=== PATIENT | female | born 1940 | race Two or more races ===

== ENCOUNTER 2020-02-11 06:55 | Inpatient (IN) | payer MEDICARE, OTHER ==
[~2020-02-11] VITALS: Ht 149.9 cm; Wt 63.1 kg
[2020-02-11] MEDS ORDERED: SODIUM CHLORIDE 0.9% 1,000 ML IV ONE (07:02)
[2020-02-11] MEDS ORDERED: ASPirin 81 mg TAB PO ONE (07:15)
[2020-02-11 07:37] LABS: Basophils # (auto) 0 10 ^3/uL (0-0.2); Basophils % (auto) 0.4 % (0.0-2.0); Eosinophils # (auto) 0 10 ^3/uL (0-0.8); Eosinophils % (auto) 0.9 % (0.0-7.0); Hemoglobin 14.9 g/dL (12.2-16.2); Lymphocytes # (auto) 1.5 10 ^3/uL (0.4-5.4); Lymphocytes % (auto) 29.8 % (10.0-50.0); Mean Corpuscular Hemoglobin 32.6 pg (28.0-32.0); Monocytes # (auto) 0.3 10 ^3/uL (0-1.3); Monocytes % (auto) 5.5 % (0.0-12.0); Neutrophils # (auto) 3.3 10 ^3/uL (1.6-8.6); Neutrophils % (auto) 63.4 % (37.0-80.0); Nucleated Red Blood Cells % 0.1 %; Platelet Count (auto) 230 10^3/uL (140-450); Red Blood Cells 4.58 10^6/uL (4.0-5.20); Red Cell Distribution Width 12.8 % (11.8-14.3); White Blood Cell 5.2 10^3/uL (4.4-10.8)
[2020-02-11 07:50] LABS: Albumin 3.7 g/dL (3.4-5.0); Anion Gap 7 (5-15); Blood Urea Nitrogen 15 mg/dL (7-18); Calcium 9.4 mg/dL (8.5-10.1); Carbon Dioxide 26 mmol/L (21-32); Chloride 107 mmol/L (98-107); Glucose 127 mg/dL (74-106); Potassium 3.8 mmol/L (3.5-5.1); Sodium 140 mmol/L (136-145)
[2020-02-11 07:56] LABS: Alanine Aminotransferase 22 U/L (13-56); Alkaline Phosphatase 79 U/L (45-117); Aspartate Aminotransferase 17 U/L (15-37); BUN/Creatinine Ratio 18.3; Bilirubin, Total 0.6 mg/dL (0.2-1.0); GFR African American 87 mL/min; GFR Non-African American 72 mL/min; Total Protein 7.8 g/dL (6.4-8.2)
[2020-02-11 10:28] LABS: Urine Bacteria FEW /hpf (None Seen); Urine Blood Negative /uL (Negative); Urine Mucus FEW (None Seen); Urine Specific Gravity 1.015 (1.001-1.035); Urine WBC 4 /hpf (0 - 5)
[2020-02-11] MEDS ORDERED: cefTRIAXone 1GM/50ML D5W 50 ML IV ONE (10:45)
[2020-02-11] MEDS ORDERED: HYDROcodone-ACET 5/325MG TAB PO PRN (12:30)
[2020-02-11] MEDS ORDERED: ACETAMINOPHEN 500 MG TAB PO PRN (12:30)
[2020-02-11] MEDS ORDERED: NITROGLYCERIN 0.4 MG SL TAB SL PRN (12:30)
[2020-02-11] MEDS ORDERED: ONDANSETRON HCL 4 MG/2 ML VIAL IV PRN (12:30)
[2020-02-11] MEDS ORDERED: PANTOPRAZOLE 40 MG/10 ML VIAL INJ IV ONE (12:30)
[2020-02-11] MEDS ORDERED: MORPHINE SULF INJ 2 MG/ML SYRINGE 1ML IV PRN ×2 (12:30)
[2020-02-11 12:55] LABS: Cholesterol 267 mg/dL (< 200)
[2020-02-11] MEDS: SODIUM CHLORIDE 0.9% 1,000 ML IV SCH (12:55)
[2020-02-11 12:58] LABS: HDL Cholesterol 74 mg/dL (40-59); LDL Cholesterol 159 mg/dL (< 100); Triglycerides 192 mg/dL (< 150)
[2020-02-11] MEDS: metroNIDAZOLE 500MG/100ML 100 ML IV SCH ×2 (14:21→22:52)
[2020-02-11 17:24] VITALS: BP 147/86
[2020-02-11] MEDS ORDERED: AMLO5TAB15 PO (18:07)
--- NOTE | 2020-02-11 20:00 | NUR ---
Opening Shift Note Assumed care of patient, awake and alert, oriented x 4, follows direction, clear speech. On room air with even and unlabored respirations. Patient ambulates to bathroom independently with steady gait. Patient report abd pain 6/10, patient states pain is tolerable at this time, educated on patient pain management. No S/S of distress/SOB. Bed in lowest locked position with side rails up x 2 and call light within reach. Instructed on POC for stress test tomorrow and collection of stool sample, patient verbalized understanding. Instructed patient to call for assist PRN, will continue to monitor for changes Q1hr and PRN.
[2020-02-11 22:00] VITALS: BP 135/70
[2020-02-11] MEDS: ATORVASTATIN 20 MG TAB PO SCH (22:52)
[2020-02-12] MEDS: SODIUM CHLORIDE 0.9% 1,000 ML IV SCH (01:58)
[2020-02-12 05:00] VITALS: BP 133/64
[2020-02-12] MEDS: metroNIDAZOLE 500MG/100ML 100 ML IV SCH ×3 (05:31→22:23)
[2020-02-12 06:48] LABS: Basophils # (auto) 0 10 ^3/uL (0-0.2); Basophils % (auto) 0.3 % (0.0-2.0); Eosinophils # (auto) 0 10 ^3/uL (0-0.8); Hematocrit 38.1 % (36.0-46.0); Hemoglobin 13.2 g/dL (12.2-16.2); Lymphocytes # (auto) 0.9 10 ^3/uL (0.4-5.4); Lymphocytes % (auto) 10.4 % (10.0-50.0); Mean Corpuscular Hemoglobin 32.8 pg (28.0-32.0); Mean Corpuscular Hgb Conc. 34.7 g/dL (32.0-36.0); Mean Corpuscular Volume 94.4 fL (80.0-100.0); Monocytes # (auto) 0.9 10 ^3/uL (0-1.3); Monocytes % (auto) 9.8 % (0.0-12.0); Neutrophils # (auto) 7.2 10 ^3/uL (1.6-8.6); Neutrophils % (auto) 79.5 % (37.0-80.0); Platelet Count (auto) 203 10^3/uL (140-450); Red Blood Cells 4.04 10^6/uL (4.0-5.20); Red Cell Distribution Width 12.8 % (11.8-14.3); White Blood Cell 9.1 10^3/uL (4.4-10.8)
--- NOTE | 2020-02-12 06:52 | NUR ---
Closing Note patient resting in bed with even and unlabored respirations, no s/s of distress. Bed in lowest locked position with side rails up x2 and call light within reach.
[2020-02-12 06:56] LABS: BUN/Creatinine Ratio 11.9
[2020-02-12] MEDS ORDERED: ADENOSINE 53 MG in GIVE UN-DILUTED 0 ML IV STA (08:14)
--- NOTE | 2020-02-12 08:38 | NUR ---
STOOL COLLECTED AND SENT TO LAB.
--- NOTE | 2020-02-12 08:43 | NUR ---
IV insertion IV access obtained, via clean sterile technique by inserting 22 gauge catheter at after 1 attempt(s). IV secured properly. No trauma to site. Patient tolerated well. NOTE:
[2020-02-12 08:49] VITALS: BP 134/85
[2020-02-12] MEDS: cefTRIAXone 1GM/50ML D5W 50 ML IV SCH (08:49)
[2020-02-12 08:53] LABS: INR 1.08 (0.9-1.15)
[2020-02-12] MEDS: amLODIPine BESYLATE 5 MG TAB PO SCH (09:46)
[2020-02-12] MEDS ORDERED: ASPirin 81 mg TAB PO SCH (10:00)
--- NOTE | 2020-02-12 10:31 | NUR ---
patient wheeled down for stress test. patient continues to be NPO.
[2020-02-12 13:00] VITALS: BP 131/53
[2020-02-12] MEDS ORDERED: POTASSIUM CHL 20 Meq TABLET PO ONE (14:30)
[2020-02-12] MEDS: SOD CHL 0.9%/ KCL 20MEQ 1,000 ML IV SCH (14:38)
[2020-02-12 17:00] VITALS: BP 121/51
--- NOTE | 2020-02-12 19:35 | NUR ---
Opening Shift Note Assumed care of patient, alert and oriented x 4, follows direction, clear speech. On room air with even and unlabored respirations. Patient ambulates to bathroom independently with steady gait. No S/S of distress/SOB. Bed in lowest locked position with side rails up x 2 and call light within reach. Instructed on POC and patient to call for assist PRN, will continue to monitor for changes Q1hr and PRN.
[2020-02-12 22:00] VITALS: BP 117/42
[2020-02-12] MEDS: ATORVASTATIN 20 MG TAB PO SCH (22:23)
[2020-02-13 05:00] VITALS: BP 125/64
[2020-02-13] MEDS: metroNIDAZOLE 500MG/100ML 100 ML IV SCH ×3 (05:42→20:51)
[2020-02-13] MEDS: SOD CHL 0.9%/ KCL 20MEQ 1,000 ML IV SCH (05:42)
[2020-02-13 06:37] LABS: Hematocrit 38.7 % (36.0-46.0)
[2020-02-13 06:59] LABS: BUN/Creatinine Ratio 13.8; Calcium 8.2 mg/dL (8.5-10.1); Potassium 3.5 mmol/L (3.5-5.1)
--- NOTE | 2020-02-13 08:00 | NUR ---
Morning note Patient resting in bed with even and unlabored respirations, no distress noted. Instructed patient through translation on POC, fall precautions and to call for assistance as needed. patient verbalized understanding. Fall precautions in place with call light within reach.
[2020-02-13] MEDS: amLODIPine BESYLATE 5 MG TAB PO SCH (08:24)
[2020-02-13] MEDS: cefTRIAXone 1GM/50ML D5W 50 ML IV SCH (08:24)
[2020-02-13 08:56] VITALS: BP 112/52
--- NOTE | 2020-02-13 10:01 | NUR ---
SOUMYA discussed with Dr. Reno
--- NOTE | 2020-02-13 10:04 | NUR ---
POC discussed with Dorcas Mercado
--- NOTE | 2020-02-13 10:09 | NUR ---
Called Sharon, patient's daughter, to update Sharon is primarily lao speaking. Mrs. Coyne, Dagmar.P., spoke to patient's daughter to update her on POC.
[2020-02-13] MEDS ORDERED: ASPirin-EC 81 mg tab PO ONE (12:30)
[2020-02-13 12:46] VITALS: BP 115/55
--- NOTE | 2020-02-13 14:28 | NUR ---
Est Energy needs 9093-8295 kcal (25-30 kcal/kg BW 63.7kg) Est protein needs 51-64g (0.8-1g/kg BW 63.7kg) Will reassess prn. Addendum: 02/13/20 at [address] Amended: Links added.
[2020-02-13] MEDS ORDERED: GOLYTELY 4L KIT PO ONE (16:00)
[2020-02-13 16:46] VITALS: BP 112/72
--- NOTE | 2020-02-13 16:55 | NUR ---
RE: Golytely - medication held Medication held due to patient not being cleared by cardiology and patient scheduled for heart catheterization tomorrow (02/14/20).
--- NOTE | 2020-02-13 16:58 | NUR ---
Notified - Dr. Dorcas Sahni Notified that patient is not cleared by cardiology and is scheduled for a heart catheterization tomorrow (02/14/20). Spoke with Maiar, protocol officer.
--- NOTE | 2020-02-13 19:20 | NUR ---
RE: Stool specimen for c-diff Patient did not have BM on this RN's shift. Patient aware of MD order for stool specimen.
--- NOTE | 2020-02-13 19:21 | NUR ---
Care endorsed to ROSANGELA Mcintosh. Patient resting in bed with even and unlabored respirations, no distress noted. Fall precautions in place.
[2020-02-13] MEDS: ATORVASTATIN 20 MG TAB PO SCH (20:50)
[2020-02-13 22:00] VITALS: BP 121/55
[2020-02-14 05:00] VITALS: BP 135/72
[2020-02-14] MEDS ORDERED: MAGNESIUM CITRATE SOLUTION 300 ML BTL PO ONE (06:00)
[2020-02-14 06:24] LABS: Basophils # (auto) 0 10 ^3/uL (0-0.2); Basophils % (auto) 0.5 % (0.0-2.0); Eosinophils # (auto) 0 10 ^3/uL (0-0.8); Eosinophils % (auto) 0.6 % (0.0-7.0); Hematocrit 43.5 % (36.0-46.0); Hemoglobin 14.7 g/dL (12.2-16.2); Lymphocytes # (auto) 1.6 10 ^3/uL (0.4-5.4); Lymphocytes % (auto) 27.7 % (10.0-50.0); Mean Corpuscular Hemoglobin 32.3 pg (28.0-32.0); Mean Corpuscular Hgb Conc. 33.8 g/dL (32.0-36.0); Mean Corpuscular Volume 95.5 fL (80.0-100.0); Monocytes # (auto) 0.5 10 ^3/uL (0-1.3); Monocytes % (auto) 9.2 % (0.0-12.0); Neutrophils # (auto) 3.6 10 ^3/uL (1.6-8.6); Nucleated Red Blood Cells % 0.2 %; Platelet Count (auto) 223 10^3/uL (140-450); Red Blood Cells 4.56 10^6/uL (4.0-5.20); Red Cell Distribution Width 12.6 % (11.8-14.3); White Blood Cell 5.8 10^3/uL (4.4-10.8)
[2020-02-14] MEDS: SOD CHL 0.9%/ KCL 20MEQ 1,000 ML IV SCH ×3 (06:30→19:50)
[2020-02-14 06:42] LABS: Potassium 3.4 mmol/L (3.5-5.1)
[2020-02-14] MEDS: metroNIDAZOLE 500MG/100ML 100 ML IV SCH (06:42)
[2020-02-14 06:46] LABS: INR 1.09 (0.9-1.15); Partial Thromboplastin Time 24.5 sec (23.64-32.05)
[2020-02-14 06:50] LABS: BUN/Creatinine Ratio 8.1; Calcium 8.5 mg/dL (8.5-10.1)
--- NOTE | 2020-02-14 07:25 | NUR ---
End of Shift Note Endorsed care to dayshift nurse. At this time, patient has no s/s of distress or SOB. Patient responsive to name and touch. No complaints.
[2020-02-14] MEDS ORDERED: SODIUM CHLORIDE LOCK 0 ML ONE (08:40)
[2020-02-14] MEDS ORDERED: MIDAZOLAM HCL 5 MG/ML-1ML VIAL ONE (08:40)
[2020-02-14] MEDS ORDERED: fentaNYL CITRATE 100 MCG/2 ML VL ONE ×2 (08:41→12:29)
[2020-02-14] MEDS ORDERED: diphenhdrAMINE HCL 50 MG/1 ML VL ONE (08:41)
--- NOTE | 2020-02-14 08:56 | NUR ---
Notified MD of potassium level Notified Dr. Reno of current potassium level. MD verbalized understanding.
[2020-02-14 09:00] VITALS: BP 136/68
--- NOTE | 2020-02-14 09:00 | NUR ---
RE: Order for tap water enema - held Procedure not performed due to colonoscopy being cancelled.
--- NOTE | 2020-02-14 09:02 | NUR ---
Patient transferred to cytogenetics laboratory manager via hospital bed Respirations even and unlabored, no distress noted. IV patent with no s/s of infiltration or leaking.
[2020-02-14] MEDS ORDERED: IODIXANOL 320MG/ML 100ML BTL IV ONE (10:37)
[2020-02-14] MEDS ORDERED: LIDOCAINE 2%HCL (LOCAL ANESTH.) INJ 20ML MDV ONE (10:37)
--- NOTE | 2020-02-14 12:06 | NUR ---
RE: Intervention patient off unit at scheduled procedure. Addendum: 02/14/20 at 1608 by Sonia Kim RN Amended: Links added.
[2020-02-14] MEDS ORDERED: VERAPAMIL 2.5MG/ML INJ 2ML VIAL IV ONE ×2 (12:29→13:12)
[2020-02-14] MEDS ORDERED: HEPARIN SODIUM (PORCINE) 5000 UNITS/ML 1ML VIAL ONE ×2 (12:29→13:12)
[2020-02-14] MEDS ORDERED: ANGIOMAX 250 MG VIAL IV ONE (12:29)
[2020-02-14] MEDS ORDERED: MIDAZOLAM HCL 1MG/1ML-2 ML VIAL ONE (12:30)
[2020-02-14] MEDS ORDERED: SODIUM CHL 0.9% 0 ML ONE (12:30)
[2020-02-14] MEDS ORDERED: ATROPINE SULF 1 MG/10ml SYR ONE (13:28)
--- NOTE | 2020-02-14 14:45 | NUR ---
RE: critical microbiology result Received positive c-diff result from microbiology. 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 This RN paged Dr. Reno to notify MD of positive result.
--- NOTE | 2020-02-14 14:47 | NUR ---
Patient returned to unit from medical lab tech instructor via hospital bed Respirations even and unlabored, no distress noted. Catheterization site (right wrist) assessed for any bleeding, redness or swelling. Vasc-Band device in place. Pedal pulses on affected leg assessed for positive tissue perfusion. Patient instructed through translation on need to notify staff immediately if any pain, burning or wetness to site, and any lower back pain. Fall precautions in place with call light within reach.
--- NOTE | 2020-02-14 15:00 | NUR ---
2ml of air removed from vasc-band No bleeding or swelling noted.
[2020-02-14] MEDS ORDERED: ATOR20TA50 PO (15:09)
[2020-02-14] MEDS ORDERED: ASP81EC PO (15:09)
--- NOTE | 2020-02-14 15:10 | NUR ---
aware of result Spoke with Dr. Reno. aware of positive c-diff result.
[2020-02-14] MEDS ORDERED: METR500T PO (15:11)
[2020-02-14] MEDS ORDERED: POTASSIUM CHL 20 Meq TABLET PO ONE (15:15)
--- NOTE | 2020-02-14 15:15 | NUR ---
2ml of air removed from vasc-band No bleeding or swelling noted.
--- NOTE | 2020-02-14 15:30 | NUR ---
Patient transferred to room 283 via hospital bed. Patient transferred with all personal belongings.
--- NOTE | 2020-02-14 15:30 | NUR ---
2ml of air removed from vasc-band No bleeding or swelling noted.
--- NOTE | 2020-02-14 15:45 | NUR ---
2ml of air removed from vasc-band No bleeding or swelling noted.
[2020-02-14] MEDS: metroNIDAZOLE 500 MG TAB PO SCH ×2 (15:50→22:51)
[2020-02-14] MEDS: amLODIPine BESYLATE 5 MG TAB PO SCH (15:51)
[2020-02-14] MEDS: ASPirin-EC 81 mg tab PO SCH (15:51)
--- NOTE | 2020-02-14 16:00 | NUR ---
2ml of air removed from vasc-band No bleeding or swelling noted.
--- NOTE | 2020-02-14 16:03 | NUR ---
RE: scheduled medications 1000 scheduled medications administered once patient returned to unit from clinical laboratory manager. Patient has difficulty swallowing pills. Patient prefers to have pills crushed and mixed in jell-o or applesauce. Educated patient through translation that potassium supplementation pill cannot be crushed. Patient verbalized understanding and was able to swallow medication with no complications noted.
[2020-02-14 17:01] VITALS: BP 155/68
[2020-02-14] MEDS: VANCOMYCIN HCL 125MG/5ML ORAL SOL PO SCH ×2 (17:56→22:51)
--- NOTE | 2020-02-14 17:59 | NUR ---
Right wrist dressing is clean, dry and intact with no bleeding or swelling noted. Radial pulse present. Skin color WNL. Patient denies pain at site. Respirations even and unlabored, no distress noted.
[2020-02-14] MEDS ORDERED: VANCOMYCIN HCL 125MG/5ML ORAL SOL PO SCH (18:00)
--- NOTE | 2020-02-14 19:24 | NUR ---
Care endorsed to Pita Hamilton RN. Patient resting in bed with even and unlabored respirations, no distress noted. Fall precautions in place with call light within reach. Right wrist dressing is clean, dry and intact with no bleeding or swelling noted.
[2020-02-14 20:00] VITALS: BP 128/59
--- NOTE | 2020-02-14 20:10 | NUR ---
PT AWAKE ALERT AMBULATORY IN ROOM WITH STEADY GATE;VSS;CALL LIGHT IN REACH WITH TWO SIDE RAILS UP;PT DENIES PAIN.
[2020-02-14 22:20] VITALS: BP 100/54
[2020-02-14] MEDS: ATORVASTATIN 20 MG TAB PO SCH (22:51)
[2020-02-15 05:42] VITALS: BP 111/61
[2020-02-15] MEDS: metroNIDAZOLE 500 MG TAB PO SCH ×2 (07:01→13:53)
[2020-02-15] MEDS: VANCOMYCIN HCL 125MG/5ML ORAL SOL PO SCH ×2 (07:02→11:27)
[2020-02-15] MEDS: SOD CHL 0.9%/ KCL 20MEQ 1,000 ML IV SCH (07:09)
[2020-02-15 08:00] LABS: BUN/Creatinine Ratio 16.7; Potassium 3.5 mmol/L (3.5-5.1)
[2020-02-15 09:00] VITALS: BP 105/51
[2020-02-15] MEDS: amLODIPine BESYLATE 5 MG TAB PO SCH (09:19)
[2020-02-15] MEDS: ASPirin-EC 81 mg tab PO SCH (09:21)
[2020-02-15 11:04] VITALS: BP 105/51
[2020-02-15 12:06] VITALS: BP 117/64
--- NOTE | 2020-02-15 13:51 | NUR ---
Discharge instructions given as ordered. Encourage to follow up with [facility] as instructed. All questions and concerns addressed. Patient verbalized understanding. Medication reconciliation form completed and copy given to patient. IV removed with catheter intact, pressure dressing applied. Telemetry unit returned to ICU. Patient taken to vehicle via wheelchair with all personal belongings, accompanied by staff and family member. No distress noted at time of departure.
== END 2020-02-15 12:50 | disposition home or self-care (01) | DRG 191 ==
LOC: ER 06:55 → TELE 06:56 → TELE-WESTW 17:48
PROVIDERS: ADMIT Nurse Practitioner Acute Care; ATTEND Internal Medicine
PROC: B211YZZ Fluoroscopy of Multiple Coronary Arteries using Other Contrast (ICD-10-PCS; principal; 2020-02-14)
PROC: 4A023N7 Measurement of Cardiac Sampling and Pressure, Left Heart, Percutaneous Approach (ICD-10-PCS; 2020-02-14)
DX: I25.10 Atherosclerotic heart disease of native coronary artery without angina pectoris (principal); A04.72 Enterocolitis due to Clostridium difficile, not specified as recurrent; I11.9 Hypertensive heart disease without heart failure; N30.00 Acute cystitis without hematuria; R00.1 Bradycardia, unspecified; E87.6 Hypokalemia; E78.2 Mixed hyperlipidemia; K57.30 Diverticulosis of large intestine without perforation or abscess without bleeding; Z82.49 Family history of ischemic heart disease and other diseases of the circulatory system; Z90.710 Acquired absence of both cervix and uterus; Z83.3 Family history of diabetes mellitus
CPT/HCPCS: 36415; 71045; 74176; 78452; 80048; 80053; 80061; 81001; 82270; 82378; 84443; 84484; 85014; 85018; 85025; 85048; 85610; 85730; 86850; 86900; 86901; 87493; 93005; 93306; 93454; 95819; 99152; 99153; C9113; G0378; J0153; J0696; J2250; J3490; Q9967

== ENCOUNTER 2022-02-14 12:43 | Emergency (ER) | payer MEDICARE, OTHER ==
[~2022-02-14] VITALS: Ht 154.9 cm; Wt 67.1 kg
[~2022-02-14 12:43] MED LIST: AMLO-489 PO; ASPI-394 PO; ATOR20TA50 PO; METR500T PO
[2022-02-14] MEDS ORDERED: amLODIPine BESYLATE 5 MG TAB PO ONE ×2 (22:15→23:15)
[2022-02-15 01:05] VITALS: BP 161/67
== END 2022-02-15 02:54 | disposition home or self-care (01) ==
LOC: ER 12:43
DX: M54.42 Lumbago with sciatica, left side (principal); I10 Essential (primary) hypertension; Z79.82 Long term (current) use of aspirin; Z79.899 Other long term (current) drug therapy
CPT/HCPCS: 93971